=== PATIENT | male | born 1970 | race Caucasian/White ===

== ENCOUNTER 2022-07-20 10:48 | Outpatient (CLI) | payer BC, SELFPAY ==
[2022-07-23 16:02] LABS: Testosterone, Adult Male 127 ng/dL (300-890)
== END 2022-07-20 10:49 | disposition home or self-care (01) ==
PROVIDERS: PCP Family Medicine; Visit Provider Family Medicine
DX: Z00.00 Encounter for general adult medical examination without abnormal findings (principal); E29.1 Testicular hypofunction; Z12.5 Encounter for screening for malignant neoplasm of prostate
CPT/HCPCS: 84153; 84403

== ENCOUNTER 2022-08-14 09:43 | Outpatient (CLI) | payer BC, SELFPAY | END 2022-08-14 09:44 | disposition home or self-care (01) | LOC: OP CLINIC 09:43 | PROVIDERS: PCP Family Medicine; Visit Provider Surgery | DX: Z12.11 Encounter for screening for malignant neoplasm of colon (principal); K63.5 Polyp of colon; K62.1 Rectal polyp; K57.30 Diverticulosis of large intestine without perforation or abscess without bleeding | CPT/HCPCS: 45385; 88305; 99153; J2250; J3010 ==